=== PATIENT | female | born 1995 | race Two or more races ===

== ENCOUNTER 2016-12-17 21:11 | Emergency (ER) | payer OTHER ==
[~2016-12-17] VITALS: Ht 157.5 cm; Wt 78.8 kg
[~2016-12-17 21:11] MED LIST: IBUPROFEN800 MG PO; METRONIDAZOLE500 MG PO; PRENATAL TABLE1 EACH PO
[2016-12-17 21:15] VITALS: BP 117/81
[2016-12-17] MEDS ORDERED: REGLAN10 MG PO (22:27)
[2016-12-17] MEDS ORDERED: FIORICET 50-301 EAC1 PO (22:27)
== END 2016-12-17 22:43 | disposition home or self-care (01) ==
LOC: EME 21:11
DX: F07.81 Postconcussional syndrome (principal); W22.8XXA Striking against or struck by other objects, initial encounter; Y99.0 Civilian activity done for income or pay; Y92.512 Supermarket, store or market as the place of occurrence of the external cause
CPT/HCPCS: 70450; 99281; 99284

== ENCOUNTER 2017-02-19 21:15 | Emergency (ER) | payer OTHER ==
[~2017-02-19] VITALS: Ht 157.5 cm; Wt 76.3 kg
[~2017-02-19 21:15] MED LIST changes: +FIORICET 50-301 EAC1 PO; +REGLAN10 MG PO
[2017-02-19 22:03] LABS: QUANTITATIVE HCG < 4.0 MIU/ML
[2017-02-19 23:12] LABS: ALBUMIN 4.4 g/dL (3.2-4.8)
[2017-02-19 23:13] LABS: CHLORIDE 109 mEq/L (99-109); POTASSIUM 3.8 mEq/L (3.7-5.4); SODIUM 138 mEq/L (136-147)
[2017-02-19 23:15] LABS: GLUCOSE 102 mg/dL (70-99); TOTAL PROTEIN 7.5 g/dL (6.4-8.3)
[2017-02-19 23:17] LABS: TOTAL BILIRUBIN 0.2 mg/dL (0.0-1.0)
[2017-02-19 23:18] LABS: ALKALINE PHOSPHATASE 73 IU/L (3-129)
[2017-02-19 23:19] LABS: CREATININE 0.8 mg/dL (0.6-1.3); GFR ESTIMATE (CALCULATED) > 59 mL/min/
[2017-02-19 23:20] LABS: AST (GOT) 17 IU/L (2-34); UREA NITROGEN (BUN) 12 mg/dL (9-23)
[2017-02-19 23:21] LABS: ALT (GPT) 17 IU/L (3-49)
[2017-02-19 23:32] LABS: HEMATOCRIT 38.7 % (36.0-46.0); HEMOGLOBIN 13.2 G/DL (11.9-15.5); MCHC 34.1 G/DL (30.0-36.0); MCV 93.7 FL (83-99); PLATELET COUNT 162 K/uL (156-360); RBC DIS.WIDTH-CV 11.5 % (11.8-14.6); RBC DIS.WIDTH-SD 39.1 % (39-53); RED BLOOD COUNT 4.13 M/uL (3.80-5.20); WHITE BLOOD COUNT 5.5 K/uL (4.1-10.2)
[2017-02-20] MEDS ORDERED: MOTRIN600 MG PO (00:32)
[2017-02-20 00:41] VITALS: BP 125/77
[2017-02-20 07:46] LABS: SOURCE SWAB
== END 2017-02-20 00:43 | disposition home or self-care (01) ==
LOC: EME 21:15
PROVIDERS: Emergency Medicine
DX: N83.201 Unspecified ovarian cyst, right side (principal); N93.9 Abnormal uterine and vaginal bleeding, unspecified; J45.909 Unspecified asthma, uncomplicated
CPT/HCPCS: 76856; 80053; 84702; 85027; 87210; 87491; 87591; 99281; 99285